=== PATIENT | female | born 2000 | race Caucasian/White ===

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

== ENCOUNTER 2022-10-23 11:37 | Emergency (ER) | payer OTHER ==
[~2022-10-23] VITALS: Ht 152.4 cm; Wt 38.0 kg
[~2022-10-23 11:37] MED LIST: NO HOME MEDS; ONDA4TAB6 PO
--- NOTE | 2022-10-23 12:17 | NUR ---
Pt believes she is prengant. Pt has not taken a test, orhad an ultrasound. Pt is currently on her period and thinks she is having a complication to her . Pt thinks she is around two months along.
[2022-10-23 12:55] LABS: CLARITY,URINE CLEAR (Clear); COLOR,URINE YELLOW (Yellow); GLUCOSE, URINE NEGATIVE (Neg); KETONES,URINE NEGATIVE (Neg); LEUKOCYTE ESTERASE ,URINE NEGATIVE (Neg); NITRITES, URINE NEGATIVE (Neg); OCCULT BLOOD,URINE MODERATE (Neg); PH,URINE 6.5 (4.8-8.0); PROTEIN,URINE NEGATIVE (Neg); UROBILINOGEN,URINE 0.2 E.U/dL (0.2-1.0)
[2022-10-23 12:58] LABS: UA COLLECTION TYPE CLN CATCH MIDSTREAM; URINE HCG NEGATIVE (NEG)
[2022-10-23 13:03] LABS: MUCUS STRANDS FEW /LPF (Neg); SQUAMOUS EPITHELIAL CELL,UR MODERATE /LPF (FEW)
[2022-10-23 13:04] LABS: BACTERIA,URINE FEW /HPF (Neg); WBC,URINE 0-4 /HPF (0-4)
[2022-10-23] MEDS ORDERED: IBUP-860 PO (13:15)
[2022-10-23] MEDS ORDERED: ketorolac trometh inj. 60 MG/2 ML VIAL IM ONE (13:20)
[2022-10-23 13:45] VITALS: BP 116/78
== END 2022-10-23 13:46 | disposition home or self-care (01) ==
LOC: ER 11:38
DX: N94.6 Dysmenorrhea, unspecified (principal); Z79.899 Other long term (current) drug therapy
CPT/HCPCS: 81001; 81025; 96372; 99283; J1885

== ENCOUNTER 2023-02-11 15:23 | Emergency (ER) | payer OTHER ==
[~2023-02-11] VITALS: Ht 154.9 cm; Wt 45.0 kg
[~2023-02-11 15:23] MED LIST changes: +IBUP-860 PO
[2023-02-11 15:26] VITALS: TEMP 97.8
[2023-02-11 15:54] LABS: BASOPHILS # (AUTO) 0.1 X10'3 (0-0.2); EOSINOPHILS # (AUTO) 0.1 X10'3 (0-0.9); HEMATOCRIT 39.9 % (35.0-45.0); HEMOGLOBIN 13.2 g/dl (12.0-16.0); LYMPHOCYTES # (AUTO) 1.1 X10'3 (1.1-4.8); MEAN CORPUSCULAR HEMOGLOBIN 29.4 PG (27.0-31.0); MONOCYTES # (AUTO) 0.9 X10'3 (0-0.9); MONOCYTES % (AUTO) 11.9 % (2-12); NEUTROPHILS # (AUTO) 5.5 X10'3 (1.8-7.7); NEUTROPHILS % (AUTO) 72.1 % (42-75); PLATELET COUNT 348 X10'3 (140-440); RED BLOOD COUNT 4.48 X10'6 (4.20-5.60); RED CELL DISTRIBUTION WIDTH 14.3 % (11.5-14.5); WHITE BLOOD COUNT 7.6 X10'3 (4.5-11.0)
[2023-02-11 16:04] LABS: ALANINE AMINOTRANSFERASE 20 U/L (12-78); ALBUMIN 4.4 G/DL (3.4-5.0); ALBUMIN/GLOBULIN RATIO 1.2 (1.1-1.5); ALKALINE PHOSPHATASE 88 IU/L (46-116); ANION GAP 11 (8-16); ASPARTATE AMINO TRANSFERASE 19 U/L (10-37); BILIRUBIN,TOTAL 0.5 MG/DL (0.1-1.0); BLOOD UREA NITROGEN 12 MG/DL (7-18); BUN/CREATININE RATIO 13.8 (10.0-20.0); CALCIUM 9.6 MG/DL (8.5-10.1); CHLORIDE 99 MMOL/L (99-107); CREATININE 0.87 MG/DL (0.40-0.90); GLUCOSE 95 MG/DL (70-104); POTASSIUM 3.3 MMOL/L (3.5-5.1); SODIUM 138 MMOL/L (135-145); TOTAL CARBON DIOXIDE 28.3 MMOL/L (24-32); eCRCL 73 ML/MIN; eGFR 82 ML/MIN
[2023-02-11] MEDS ORDERED: ALBU18HF2 INH ×3 (16:16→16:17)
[2023-02-11 16:25] VITALS: BP 120/93; PULSE 93; RESP 18; O2SAT 98
[2023-02-12] MEDS ORDERED: AMOX-115 PO (23:59)
== END 2023-02-11 16:26 | disposition home or self-care (01) ==
LOC: ER 15:23
DX: R09.1 Pleurisy (principal); Z79.1 Long term (current) use of non-steroidal anti-inflammatories (NSAID); Z79.2 Long term (current) use of antibiotics; Z79.899 Other long term (current) drug therapy
CPT/HCPCS: 36415; 71045; 80053; 85025; 93005; 99285

== ENCOUNTER 2023-02-12 21:05 | Emergency (ER) | payer OTHER ==
[~2023-02-12] VITALS: Ht 152.4 cm; Wt 38.6 kg
[~2023-02-12 21:05] MED LIST changes: +ALBU18HF2 INH
[2023-02-12 22:28] VITALS: BP 123/88; PULSE 81; O2SAT 99
[2023-02-12 22:29] VITALS: RESP 16
[2023-02-12 23:48] LABS: D-DIMER < 0.19 MG/L FEU (0-0.50)
[2023-02-12] MEDS ORDERED: AMOX-115 PO (23:59)
[2023-02-13] MEDS ORDERED: ibuprofen tablet 400 MG TABLET PO ONE
[2023-02-13] MEDS ORDERED: amox tr/potassium clavulanate 500mg/125mg TAB PO ONE (00:15)
[2023-02-13 00:24] VITALS: TEMP 98.4
[2023-02-13] MEDS ORDERED: amox tr/potassium clavulanate 500mg/125mg TAB PO SCH (08:30)
== END 2023-02-13 00:27 | disposition home or self-care (01) ==
LOC: ER 21:06
DX: R09.1 Pleurisy (principal)
CPT/HCPCS: 36415; 71045; 85379; 99284